=== PATIENT | male | born 1995 | race Caucasian/White ===

== ENCOUNTER → 2017-03-26 | Outpatient (CLI) | payer OTHER ==
--- NOTE | 2017-03-26 13:33 | DIAGNOSTIC IMAGING REPORT ---
FLUOROSCOPICALLY GUIDED LEFT SHOULDER ARTHROGRAM PRIOR TO MRI CLINICAL HISTORY: Left shoulder pain. Fluoroscopy time: 15 seconds. FINDINGS: 1 fluoroscopic image was obtained. The procedure, risks and benefits were discussed with the patient and informed written consent was obtained. The procedure was performed by Dr. Zeng following a timeout. Skin overlying the left glenohumeral joint was prepped and draped in sterile fashion and local anesthesia was achieved with 1% lidocaine. Under intermittent fluoroscopic guidance, a 2 1/2 inch, 22-gauge needle was directed into the left glenohumeral joint. Positioning within the joint space was confirmed with injection of a small amount of contrast. At this time, 10 cc of a mixture of 0.1 cc of gadolinium, 10 cc of normal saline and 10 cc of Optiray 300 was injected into the joint space. The needle was removed. The patient tolerated the procedure well and no immediate complications were evident. IMPRESSION: Fluoroscopically guided left shoulder arthrogram prior to MRI. Electronically signed by: Teja Zeng M.D. 03/26/2017 1:32 PM Dictated Date/Time: 03/26/2017 1:30 PM
--- NOTE | 2017-03-27 07:53 | DIAGNOSTIC IMAGING REPORT ---
MRI LEFT SHOULDER NO CONTRAST CLINICAL HISTORY: Left shoulder pain. Limited range of motion. COMPARISON STUDY: Conventional radiographic study dated 03/14/2017 FINDINGS: Imaging was performed in the axial, sagittal, and coronal planes. There are no areas of marrow replacement to indicate occult fracture or bone bruise. The bicipital tendon appears normal. There is no evidence of rotator cuff tear. There is a SLAP tear of the glenoid labrum.. IMPRESSION: 1. No evidence of rotator cuff tear 2. SLAP tear of the glenoid labrum Electronically signed by: Ashutosh Benito M.D. 03/27/2017 7:52 AM Dictated Date/Time: 03/27/2017 7:45 AM
== END | disposition home or self-care (01) ==
LOC: C.MRIBC 12:24
PROVIDERS: ATTEND Physical Medicine & Rehabilitation Sports Medicine
DX: M25.512 Pain in left shoulder (principal); S43.432A Superior glenoid labrum lesion of left shoulder, initial encounter; X58.XXXA Exposure to other specified factors, initial encounter

== ENCOUNTER → 2017-05-01 | Day surgery (SDC) | payer OTHER ==
[2017-04-15 10:30] VITALS: Ht 172.7 cm; Wt 88.6 kg
[~2017-05-01] VITALS: Ht 172.7 cm; Wt 88.6 kg
[~2017-05-01] MED LIST: ATROPINE SULFATE 0.1 MG/ML 5ML SYR IV PRN; BUPIVACAINE/EPINEPHRINE 0.25% 1:200,000 30 ML VIAL ONE; CEFAZOLIN 2000MG IV PUSH 10 ML IV SCH; DEXAMETHASONE SOD INJ 4 MG/ML VIAL ONE; EpHEDrine SULFATE INJ 50 MG/ML AMP IV PRN; EpINEphrine INJ 1MG/ML AMP 1 MG/ML AMP ONE; FENTANYL CITRATE INJ 50 MCG/1 ML 2 ML VIAL IV PRN; FENTANYL CITRATE INJ 50 MCG/1 ML 2 ML VIAL ONE; GLYCOPYRROLATE INJ 0.2 MG/ML VIAL ONE; LACTATED RINGER'S 1000ML 1,000 ML IV SCH; LIDOCAINE HCL 2% 2 ML VIAL (20MG/ML) ONE; LIDOCAINE/EPINEPHRINE 1% INJ 50 ML VIAL ONE; MIDAZOLAM HCL 1 MG/ML 2ML VIAL ONE; MoRPHine SULFATE 2 MG/ML CARP IV PRN; MoRPHine SULFATE 4 MG/ML 1 ML CARP\\VIAL IV PRN; NEOSTIGMINE METHYLSULFATE 5 MG/5 ML SYR ONE; ONDANSETRON INJ 2 MG/ML 2 ML VIAL IV PRN; ONDANSETRON INJ 2 MG/ML 2 ML VIAL ONE; OXYC-57 PO; OXYCODONE/ACETAMINOPHEN 5-325 TAB PO PRN; PROMETHAZINE HCL INJ 6.25 MG in SODIUM CHLORIDE 0.9% 50ML 50 ML IV PRN; PROPOFOL IV EMULSION 10 MG/ML 20 ML VIAL IV ONE; SODIUM CHLORIDE 0.9% 1000ML 1,000 ML IV SCH
--- NOTE | 2017-05-01 06:39 | History & Physical Bridge Note ---
H&P Re-Evaluation Bridge Note: I have examined the patient, reviewed the History & Physical and in the interval since the performance of the History & Physical I have noted the following changes of clinical significance: No changes noted
--- NOTE | 2017-05-01 11:54 | [facility] Post Operative Brief Note ---
Immediate Operative Summary Operative Date May 01, 2017. Pre-Operative Diagnosis Left Shoulder Labral Tear Post-Operative Diagnosis anterior and posterior labral tears Procedure(s) Performed Left Shoulder Arthroscopy, Labral Repair Surgeon Dr. Vazquez [facility] Charge Nurse Surgeon(s) Su Candelaria, Fellow; Kuldip Matamoros PA-C Estimated Blood Loss 20 Findings as above Specimens None Anesthesia LMA with block Complication(s) None Disposition Recovery Room / PACU
--- NOTE | 2017-05-01 12:14 | Discharge Instructions-SurgCtr ---
Discharge Instructions Date of Service May 01, 2017. Visit Reason for Visit: Left Shoulder Labral Discharge Discharge Diagnosis / Problem: left shoulder labral tear Discharge Goals Goal(s): Decrease discomfort, Improve function, Increase independence Activity Recommendations Activity Limitations: per Instructions/Follow-up section Weightbearing Status: Left non-weightbearing Anesthesia . Post Anesthesia Instructions: If you have had General Anesthesia or IV Sedation: * Do not drive today. * Resume driving when surgeon permits. * Do not make important decisions or sign legal documents today. * Call surgeon for: 1. Temperature elevations greater than 101 degrees F. 2. Uncontrollable pain. 3. Excessive bleeding. 4. Persistent nausea and vomiting. 5. Medication intolerance (nausea, vomiting or rash). * For nausea and vomiting use only clear liquids such as: tea, soda, bouillon until nausea subsides, then gradually increase diet as tolerated. * If you have any concerns or questions, call your surgeon's office. If physician is unavailable and it is an emergency, call 911 or go to the nearest emergency room. . Instructions / Follow-Up Instructions / Follow-Up The following are instructions to follow after "Shoulder Surgery" including, Acromioplasty, Rotator Cuff Repair and Instability Surgery ACTIVITY RECOMMENDATIONS: * Minimize activity after surgery. * No excessive walking, jogging, sports or laboring. * Return to activity is individualized depending on the patient and type of surgery. * Driving is not permitted until at least your first post operative visit. Please ask your doctor when it is safe to resume driving. * Expect increased discomfort with increased activity. Continue to ice the shoulder as needed. SCHOOL/WORK RECOMMENDATIONS: * You may return to sedentary work or school when you are feeling more comfortable. This is usually 3-7 days after surgery. MEDICATIONS: * You will have a prescription for pain medication and an anti-inflammatory medication after surgery. * Use the pain medication for severe pain and the anti-inflammatory for less severe pain. Once the pain medication has run out, try to use the anti-inflammatory medication. If this is not effective, contact the office for assistance. * The pain medication may cause nausea, constipation and drowsiness. You should see how they affect you before driving or similar activity. * The anti-inflammatory medication may cause stomach upset and bleeding. If this occurs let your doctor know immediately . * Take a stool softener like Colace or a laxative like Senokot to prevent constipation. DIET: * Resume previous diet. SPECIAL CARE: ICE: You have the option of an ice cooler, gel packs or ice bags. * If you have an ice cooler, refer to the instructions for that device. The ice cooler may be used continuously. * If you do not have an ice cooler, you will need to use ice bags or gel packs. Do not apply ice directly to the skin. Use a thin dressing or nolan shirt between the skin and ice bag. Apply ice for 20-30 minutes and repeat every 2-4 hours. This is especially important for the first 7-10 days after surgery. Once the pain improves, use ice as needed. ELEVATION: * You may be more comfortable sleeping in an upright position. Use the sling to elevate your arm. DRESSING: * Your dressing will be changed at your first therapy appointment approximately 4-5 days after surgery. Band-aids, tape strips or gauze may be applied. You may then change your dressing daily. * Reapply dressing followed by the EBIce cooling pad (if chosen) and then the sling. * Always wash your hands prior to touching the incision area. * Once the stitches are removed, you may leave the wound open to air or cover with gauze. * Expect some bloody drainage for the first few days after surgery. * Leave the tape strips, if present, in place for 5-7 days. * Band-aids and gauze may be changed daily. * There may be a gauze pad in your armpit area. This can be changed daily or replaced by a dry washcloth. SLING/BRACE: * You will need to use a sling or brace after surgery. The length of time the sling is used is dependent upon the type of surgery performed. * Arthroscopic Acromioplasty requires use of the sling for 2-4 weeks for comfort. * Labral procedures and Rotator Cuff Repairs require use of the sling for a longer period of time. Please check with your doctor prior to discontinuing the sling. BATHING: * You may shower or sponge-bathe immediately after surgery. The post operative shoulder dressing is mostly water-tight. You may shower right over this dressing, but be reasonably careful not to get the gauze or incision wet. * Once the dressing has been changed on the fourth or fifth day after surgery, you may shower and get the incision wet. * Wash with regular soap and water. * Do not bathe (submerge the incision), soak, swim or use a hot tub until the incision is completely healed over with normal skin and the doctor has given the OK to proceed. * There is no need to apply any ointments, powders or salves to your incision. * Do not apply alcohol or hydrogen peroxide directly to the incision. * Diluted peroxide (50:50 mixture with sterile saline) may be used to clean dried blood from around the incision area. THERAPY: * You will begin therapy four or five days after surgery. * Organized therapy with the therapist is important for the first 2-4 months after surgery depending on the type of procedure. During that time you will attend therapy 1-3 times per week. * You will also need to do daily exercises for range of motion and strength as instructed. * Patients who have a Capsular Shift Procedure will need to abide by temporary range of motion limitations. * Patients having Rotator Cuff Surgery are not allowed to actively lift their arms until 4-6 weeks after surgery. * Please check with your doctor regarding appropriate motion restrictions. FOLLOW UP VISIT: * If not already scheduled, please call the office at to schedule a follow-up appointment for 10 days after surgery and monthly thereafter. * You have physical therapy appointment on 05/06/2017 at 9 AM * You have a follow-up appointment scheduled with Dr. Vazquez on 05/16/2017 at 12:15 PM Diet Recommendations Home Diet: no limitations, resume previous diet Procedures Procedures Performed: Left Shoulder Arthroscopy Anterior and Posterior Labral Repair Pending Studies Studies pending at discharge: no Medical Emergencies . Who to Call and When: Medical Emergencies: If at any time you feel your situation is an emergency, please call 911 immediately. . Non-Emergent Contact Non-Emergency issues call your: Surgeon Call Non-Emergent contact if: temperature is above 101, your pain is not controlled, your pain is worsening, wound has increased drainage, wound has increased redness, wound has increased pain, you have any medication questions . . "Provider Documentation" section prepared by Lenora Matamoros. . [place] Drug Monitoring Program Search Results: patient reviewed within database, no issues identified
--- NOTE | 2017-05-01 12:16 | [facility] Operative Report ---
Operative Report Operative Date May 01, 2017. Pre-Operative Diagnosis Left Shoulder Labral Tear Post-Operative Diagnosis anterior and posterior labral tears Procedure(s) Performed Left Shoulder Arthroscopy Anterior and Posterior Labral Repair Surgeon Dr. Vazquez Tour Bus Driver/Guide Surgeon(s) Su Candelaria, Fellow; Kuldip Matamoros PA-C Estimated Blood Loss 20ML Findings Anterior and posterior labral tear Specimens None Drains none Anesthesia LMA with block Complication(s) None Disposition Recovery Room / PACU Indications Patient is a 21-year-old male who status post a left shoulder injury a couple of months ago. He continues to have instability and pain of his left shoulder. MRI arthrogram obtained and found to have the labral tear of his left shoulder. Surgical intervention recommended. Risks and complications of surgery were expanded the patient and he agreed to proceed with surgery. Informed consent was obtained. Surgery was scheduled. Description of Procedure She was taken the operating room and placed under general anesthesia. He had a peripheral nerve block of his left shoulder. He was given 2 g of IV Ancef for surgical prophylaxis. Timeout was performed. He was prepped and draped in routine sterile fashion. I was present during the entire case, please see Dr. Vazquez's operative report for further detail. He was awakened and transferred to the recovery room in stable condition. I attest to the content of the Intraoperative Record and any orders documented therein. Any exceptions are noted below.
[2017-05-01 13:35] VITALS: BP 130/83; PULSE 75; TEMP 36.5; O2SAT 98
--- NOTE | 2017-05-01 13:38 | OPERATIVE REPORT ---
DATE OF OPERATION: 05/01/2017 PREOPERATIVE DIAGNOSIS: Labral tear of the left shoulder. POSTOPERATIVE DIAGNOSIS: Anterior and posterior labral tear of the left shoulder. SURGEON: Dr. Zeferino Vazquez. PAYROLL MANAGER: Wesly Candelaria. SECOND PAYROLL MANAGER: Lenora Matamoros, physician's early childhood assistant. ANESTHESIA: Laryngeal mask with peripheral nerve block. INDICATIONS OF PROCEDURE: The patient is a 21-year-old male status post dislocation of his left shoulder while wrestling. He has an MRI, which suggested an anterior and superior labral tear. We reviewed his options and he elected to proceed with operative intervention. PROCEDURE IN DETAIL: Informed consent was obtained. The patient was identified as Sohail Hamilton. He identified the operative site as the left shoulder. I marked it with my initials and a preoperative surgical timeout was performed. He was taken to the operating room, where the anesthetic was administered. He was then examined and found to have a half grade more of posterior translation on the left and about equal translation on the right, a grade 1 sulcus, full movement and a positive click with anterior translation. He was positioned decubitus with the left side up and an axillary roll was inserted. Bony prominences were inspected and padded. A pillow was placed between the knee and the peroneal nerve was padded. The torso was secured to the table. Left upper extremity was then prepped and draped in the usual sterile fashion. The Arthrex shoulder tower was utilized with 10 pounds of traction both distal and lateral. DVT prophylaxis will be done with early patient mobility. A posterior soft spot viewing portal was established followed by an anterior mid glenoid working portal using the outside-in technique. The articular surfaces were normal. The rotator cuff was intact throughout. The biceps tendon looked normal. The axillary pouch was unremarkable. The anterior and posterior capsule and rotator interval were normal except for a little bit of synovitis in the rotator interval anteriorly, which was debrided. He had a discoid superior labrum, which was lightly debrided. The biceps was stable. It could not be displaced into the joint or from the superior labrum. There was a labral recess, but there was no notable granulation tissue or evidence of tearing from 10 o'clock to about 2 o'clock. There was a large anterior labral tear with what appeared to be a small bony Bankart lesion anteroinferiorly. There was no HAGL lesion. The scope was placed in the front and the posterior structures were visualized. There was a labral tear with a loose flap, which was debrided and there was also a labral separation type tear. Some of the bulk of the labrum had been lost with the tear. An 8-mm cannula was inserted posteriorly. A 6-mm cannula was inserted anterosuperiorly using the outside-in technique in the posterior margin of the rotator interval. It was switched to front and back of the biceps as necessary. The posterior labrum was debrided and then elevated using an elevator rasp and shaver until it was adequately mobilized. I attempted to put the first anchor in through the posterior cannula, but the angle was off. This caused the initial drilling to skive slightly on to the face of the glenoid. The area was 2 mm x 5 mm. Most of this was then covered up with the labral repair as the tissue was shifted up onto the face of the glenoid. I then went ahead and used a percutaneous technique localized with a spinal needle followed by the small incision dilator and then the guide. This allowed a more acute angle perpendicular to the face of the glenoid. The initial anchor posteriorly was inserted at about the 5 o'clock position in the left shoulder up on to the face of the glenoid. The Spectrum suture passer was utilized to shuttle the suture using the anterosuperior cannula and then, this was tied with a modified [place] backed up with reverse half hitches on alternating posts. Care was taken to imbricate the capsule posteriorly as well as shifted superiorly. Two additional anchors were placed using the percutaneous technique at about the 2 o'clock and 3:30 o'clock positions up on the face of the glenoid posteriorly. Attention was turned anteriorly, where the labrum was mobilized with the rasp and shaver followed by use of the ball tip rasp, which was also done posteriorly. After adequate labral mobility was obtained, the repair was effected in the same fashion using the drill guide and spectrum suture shuttle. There was a small bony Bankart noted anteriorly. Great care was taken to shift the labral tissue up on to the face of the glenoid, both anteriorly and superiorly. In fact, my initial pass with the spectrum was inadequate and I went ahead and grabbed the labral tissue through the anterosuperior cannula, shifted it superiorly and then repassed my shuttling stitch. The sutures were tied in a likewise fashion and were placed at the 7, 8:30 and 9:30 o'clock positions up on to the face of the glenoid imbricating the tissue. I again reexamined the superior labrum, which was fine. I examined through the anterosuperior portal and the humeral head was centered. I shaved to clean up any loose debris. The posterior capsular incision for the posterior portal was closed by backing the cannula out slightly using a shallow up suture hook followed by a [place] piercing normally the capsule and imbricating about 1-1.5 cm posterior capsule to tighten that up. This was tied in a likewise fashion through the cannula directly over the posterior capsule. The traction was removed from the shoulder. The portals were closed with 4-0 nylon. The arm was cleaned with wet and dry sponges. A soft sterile dressing was applied with an ABD in the armpit and an UltraSling. The patient awakened from anesthesia without difficulty and taken to recovery room in stable condition. There were no specimens or complications. Counts were correct at the end of the case. Blood loss was about 20 mL. At the conclusion of the operation, I spoke to the patient's family and informed them of my findings. Detailed postoperative instructions were given. He will be rehabilitated according to a combination of the posterior and anterior labral repair protocols. We will limit external rotation to 20 degrees. The biceps articular surface of the humeral head were normal. He did have some fraying of the posterosuperior rotator cuff, which was debrided. I did not see a significant Hill-Sachs lesion. The bare area was normal. The far inferior labrum between the 2 suture anchors was intact and was not torn nor was the superior labrum torn. The suture anchors utilized were the Arthrex 3.0 mm PEEK SutureTak anchors. The standard cannula was utilized anteriorly and the percutaneous kit was utilized posteriorly. I attest to the content of the Intraoperative Record and any orders documented therein. Any exceptions are noted below. [facility]
--- NOTE | 2017-05-01 13:51 | Anesthesia Progress Nt - [facility] ---
Anesthesia Post Op Note Date & Time May 01, 2017 at 13:51 Vital Signs Pain Intensity: 0 Vital Signs Past 12 Hours Date Time Temp Pulse Resp B/P (MAP) Pulse Ox O2 Delivery O2 Flow Rate FiO2 05/01/17 13:35 36.5 75 16 130/83 (99) 98 Room Air 05/01/17 13:02 78 18 133/83 (100) 96 Room Air 05/01/17 12:53 36.5 82 12 138/88 96 Room Air 05/01/17 12:51 77 15 05/01/17 12:51 81 15 138/88 96 05/01/17 12:46 77 13 05/01/17 12:46 77 13 155/91 95 05/01/17 12:41 76 12 05/01/17 12:41 78 12 150/82 97 05/01/17 12:36 82 15 05/01/17 12:36 91 15 142/91 99 05/01/17 12:31 87 13 05/01/17 12:31 87 13 155/78 99 05/01/17 12:26 70 15 151/79 98 05/01/17 12:26 73 15 05/01/17 12:21 77 17 05/01/17 12:21 85 17 142/78 98 05/01/17 12:16 82 15 155/64 98 05/01/17 12:16 79 15 05/01/17 12:11 82 11 167/78 98 05/01/17 12:11 83 11 148/79 05/01/17 12:09 36.6 85 24 167/78 98 Mask 6 05/01/17 08:45 0 05/01/17 08:45 0 05/01/17 08:42 119/77 05/01/17 08:42 119/77 05/01/17 08:40 86 11 99 05/01/17 08:40 88 05/01/17 08:40 88 05/01/17 08:40 86 11 99 05/01/17 08:39 75 18 99 05/01/17 08:39 80 05/01/17 08:36 142/74 05/01/17 08:34 74 22 99 05/01/17 08:34 79 05/01/17 08:33 76 16 99 05/01/17 08:33 76 05/01/17 08:31 135/78 05/01/17 08:28 78 05/01/17 08:28 77 12 99 05/01/17 08:27 78 05/01/17 08:27 82 9 99 05/01/17 08:26 130/79 05/01/17 08:24 99 05/01/17 08:24 100 18 100 05/01/17 08:23 84 05/01/17 08:23 77 8 98 05/01/17 08:22 133/81 05/01/17 08:18 76 05/01/17 08:18 77 13 99 05/01/17 08:17 86 05/01/17 08:17 81 14 100 05/01/17 08:16 127/105 05/01/17 08:13 86 95 05/01/17 08:13 77 05/01/17 08:11 124/73 05/01/17 08:08 66 96 05/01/17 08:08 65 05/01/17 08:06 116/75 05/01/17 08:04 125/71 05/01/17 08:03 89 97 05/01/17 08:03 89 05/01/17 06:43 36.4 73 16 123/82 (96) 99 Notes Mental Status: alert / awake / arousable, participated in evaluation Pt Amnestic to Procedure: Yes Nausea / Vomiting: adequately controlled Pain: adequately controlled Airway Patency, RR, SpO2: stable & adequate BP & HR: stable & adequate Hydration State: stable & adequate Anesthetic Complications: no major complications apparent Block working well in pacu
== END | disposition home or self-care (01) ==
LOC: X.SURG 06:26
PROVIDERS: ATTEND Physical Medicine & Rehabilitation Sports Medicine
DX: S43.432A Superior glenoid labrum lesion of left shoulder, initial encounter (principal); M25.312 Other instability, left shoulder; X58.XXXA Exposure to other specified factors, initial encounter; Z98.890 Other specified postprocedural states; Z90.89 Acquired absence of other organs